=== PATIENT | female | born 1975 | race American Indian/Alaskan Native ===

== ENCOUNTER 2016-06-19 04:13 | Emergency (ER) | payer MEDICAID ==
[2016-06-19] MEDS: DILAUDID IM ONE (06:56)
[2016-06-19] MEDS: ZOFRAN ODT PO ONE (06:57)
[2016-06-19] MEDS: TORADOL IM ONE (06:57)
--- NOTE | 2016-06-19 07:06 | Emergency Department Report ---
HPI - General Chief Complaint: Dental/Oral Time Seen by Provider: 06/19/16 06:03 - HPI HPI: This is a 40-year-old female presents emergency Department with her mother with complaint of left jaw pain that started this morning that they believed to be trigeminal neuralgia. The patient has a history of this and has required multiple ED visits in the past or treatment. The patient started having this when she was a year or so ago. At that time she was started on a medication that they say is "epitol" and mom says that she usually requires a shot of Dilaudid and Zofran to make the pain go away. Patient also tried some Motrin earlier this morning. Patient is a poor historian herself right now as she is moaning due to discomfort. ED Past Medical Hx - Past Medical History Previous Medical History?: Yes Hx Hypertension: No Hx CVA: No Hx Heart Attack/AMI: No Hx Congestive Heart Failure: No Hx Diabetes: No Hx Deep Vein Thrombosis: No Hx Pulmonary Embolism: No Hx GERD: No Hx Liver Disease: No Hx Renal Disease: No Hx Sickle Cell Disease: No Hx Arthritis: No Hx Headaches / Migraines: No Hx Seizures: No Hx Kidney Stones: No Hx Psychiatric Treatment: No Hx Asthma: No (childhood) Hx COPD: No Hx Tuberculosis: No Hx Dementia: No Hx HIV: No Additional medical history: MS, trigeminal neuralgia - Surgical History Hx Coronary Stent: No Hx Open Heart Surgery: No Hx Pacemaker: No Hx Internal Defibrillator: No Hx Cholecystectomy: No Hx Appendectomy: No Hx Breast Surgery: No Additional Surgical History: oscopy - Social History Smoking Status: Never Smoker - Medications Home Medications: Home Medications Medication Instructions Recorded Confirmed Last Taken Type oxyCODONE /ACETAMINOPHEN [Percocet 1 tab PO Q6HR PRN #12 tablet 06/19/16 Unknown Rx 5/325] ED Review of Systems ROS: Stated complaint: FACIAL PAIN Other details as noted in HPI Comment: All other systems reviewed and negative Constitutional: denies: chills, fever Eyes: denies: eye pain, eye discharge, vision change ENT: other (left-sided facial pain). denies: ear pain, throat pain Respiratory: denies: cough, shortness of breath, wheezing Cardiovascular: denies: chest pain, palpitations Gastrointestinal: denies: abdominal pain, nausea, diarrhea Genitourinary: denies: urgency, dysuria, discharge Musculoskeletal: denies: back pain, joint swelling, arthralgia Skin: denies: rash, lesions Neurological: denies: headache, weakness, paresthesias Physical Exam - Physical Exam Vital Signs: Vital Signs 06/19/16 04:24 Temperature 98.7 F Pulse Rate 76 Blood Pressure 128/76 O2 Sat by Pulse 100 Oximetry Physical Exam: GENERAL: The patient is well-developed well-nourished. HEENT: Normocephalic. Atraumatic. Extraocular motions are intact. Patient has moist mucous membranes. Pupils equal reactive to light bilaterally. Oropharynx is clear. There is no facial swelling or asymmetry. Tongue is midline. NECK: Supple. Trachea is midline. CHEST/LUNGS: Clear to auscultation. There is no respiratory distress noted. HEART/CARDIOVASCULAR: Regular. There is no tachycardia. There is no gallop rub or murmur. ABDOMEN: Abdomen is soft, nontender. Patient has normal bowel sounds. There is no abdominal distention. SKIN: There is no rash. There is no edema. There is no diaphoresis. NEURO: The patient is awake, alert, and oriented. The patient is cooperative. The patient has no focal neurologic deficits. The patient has normal speech. MUSCULOSKELETAL: There is no tenderness or deformity. There is no limitation range of motion. There is no evidence of acute injury. ED Course Vital Signs 06/19/16 04:24 Temperature 98.7 F Pulse Rate 76 Blood Pressure 128/76 O2 Sat by Pulse 100 Oximetry ED Medical Decision Making - Medical Decision Making 40-year-old female presents with what appears to be a exacerbation of her previously diagnosed trigeminal neuralgia. Unable to examine the patient at first due to her level of discomfort as she is rolling around and moaning. However after a shot of Toradol, pain medication and some Zofran, I was able to speak with the patient regarding her present illness and do a examination. Patient did not have any drooling or trismus, there was no facial asymmetry or swelling and the patient was able to converse in a normal manner. Patient's vital signs are stable throughout her ED course. She was reevaluated a few times over the 2-3 hours that she was in the emergency department and has remained stable during that time. She is in between primary care physicians and has been looking for a new neurologist. She was given referrals for both a PCP and neurology. She was given a prescription for some pain medication to help her get over this exacerbation. She'll return to the ER with any worsening of her symptoms or any acute distress. - Differential Diagnosis trigeminal neuralgia, dental abscess, TMJ Critical Care Time: No Critical care attestation.: If time is entered above; I have spent that time in minutes in the direct care of this critically ill patient, excluding procedure time. ED Disposition Clinical Impression: Trigeminal neuralgia of left side of face Disposition: DISCHARGED TO HOME OR SELFCARE Is pt being admited?: No Does the pt Need Aspirin: No Condition: Stable Instructions: Trigeminal Neuralgia (ED) Additional Instructions: Please follow-up with a primary care doctor in the next few days. I have also given you a referral for a local neurologist, Dr. Silver, to follow-up regarding your trigeminal neuralgia. Return to the emergency department with any worsening of your symptoms or any acute distress. You've been prescribed a medication that is sedating. Therefore this medication cannot be mixed with alcohol, or taken prior to driving, working, or being responsible for children. Prescriptions: oxyCODONE /ACETAMINOPHEN [Percocet 5/325] 1 tab PO Q6HR PRN #12 tablet PRN Reason: Pain Referrals: PRIMARY CAREMD [Primary Care Provider] - 3-5 Days JAMISON QUISPE MD [Staff Physician] - 3-5 Days DAVI SILVER MD [Staff Physician] - 3-5 Days [facility] [Outside] - 3-5 Days Time of Disposition: 08:03
[2016-06-19 08:10] VITALS: BP 139/81
== END 2016-06-19 08:10 | disposition home or self-care (01) ==
LOC: ED 04:13
DX: G50.0 Trigeminal neuralgia (principal)
CPT/HCPCS: 96372; 99283; J1170; J1885; Q0162

== ENCOUNTER 2016-09-30 10:37 | Inpatient (IN) | payer MEDICAID ==
[2016-09-30] MEDS ORDERED: NACL 0.9% 1000 ML 1,000 ML IV ONE (11:20)
[2016-09-30] MEDS ORDERED: NACL 0.9% 1000 ML 2,000 ML IV ONE (11:22)
--- NOTE | 2016-09-30 11:26 | Emergency Department Report ---
ED General Adult HPI - General Chief complaint: Anxiety Stated complaint: SCOOBY Time Seen by Provider: 09/30/16 10:59 Source: patient, family, EMS, RN notes reviewed Mode of arrival: Stretcher Limitations: No Limitations - History of Present Illness Initial comments: This is a 40-year-old female. She is previously unknown to me. She does not have a local primary care doctor. Past medical history includes possible anxiety (1 attack 5 years ago, no formal psychiatric diagnosis rendered by a psychiatrist), possible not multiple sclerosis, possible trigeminal neuralgia. The patient is brought to the hospital by EMS. As per EMS documentation, the patient indicated she wanted to come to hospital. Patient complains of feeling short of breeath in the ambulance. To me, the patient complains of shortness of breath. It started overnight. It is constant. She also complains of having total body pain, and indicates that her teeth hurt. She is not homicidal. She is not suicidal. She occasionally feels depressed. There is no bright red blood per rectum. There is no hematemesis. She thinks that she is not . There is no leg pain. There is no leg swelling. No recent trips greater than 4 hours. No recent hospital admissions. Patient indicates that she takes control. Initially while in the ER, the patient was very anxious, she cannot recall the month, nor can she recall the day the week. As per her mother, Mrs. Mariella Antoine; [phone], this is unusual. After. At time, this resolved. The patient also began to complain of chest pain. The chest pain is central. It does not radiate to the back, arms or neck. Patient has difficulty describing exacerbating or relieving factors. She has difficulty describing the qualitative nature of her pain. -: Gradual Location: chest, left, right, upper extremity, lower extremity Quality: other (per hpi) Improves with: other (per hpi) Worsens with: other (per hpi) Associated Symptoms: chest pain, loss of appetite, malaise, shortness of breath , weakness - Related Data Previous Rx's Medication Instructions Recorded Last Taken Type oxyCODONE /ACETAMINOPHEN [Percocet 1 tab PO Q6HR PRN #12 tablet 06/19/16 Unknown Rx ] Allergies Allergy/AdvReac Type Severity Reaction Status Date / Time No Known Allergies Allergy Verified 01/15/14 23:36 ED Review of Systems ROS: Stated complaint: SCOOBY Other details as noted in HPI Constitutional: malaise, weakness Eyes: denies: vision change ENT: denies: epistaxis Respiratory: shortness of breath Cardiovascular: chest pain Gastrointestinal: nausea Genitourinary: as per HPI Musculoskeletal: arthralgia, myalgia Neurological: weakness Psychiatric: anxiety. denies: homicidal thoughts, suicidal thoughts ED Past Medical Hx - Past Medical History Hx Hypertension: No Hx CVA: No Hx Heart Attack/AMI: No Hx Congestive Heart Failure: No Hx Diabetes: No Hx Deep Vein Thrombosis: No Hx Pulmonary Embolism: No Hx GERD: No Hx Liver Disease: No Hx Renal Disease: No Hx Sickle Cell Disease: No Hx Arthritis: No Hx Headaches / Migraines: No Hx Seizures: No Hx Kidney Stones: No Hx Psychiatric Treatment: Yes (anxiety) Hx Asthma: No (childhood) Hx COPD: No Hx Tuberculosis: No Hx Dementia: No Hx HIV: No Additional medical history: MS - Surgical History Hx Coronary Stent: No Hx Open Heart Surgery: No Hx Pacemaker: No Hx Internal Defibrillator: No Hx Cholecystectomy: No Hx Appendectomy: No Hx Breast Surgery: No Additional Surgical History: oscopy - Social History Smoking Status: Current Every Day Smoker Substance Use Type: None - Medications Home Medications: Home Medications Medication Instructions Recorded Confirmed Last Taken Type oxyCODONE /ACETAMINOPHEN [Percocet 1 tab PO Q6HR PRN #12 tablet 06/19/16 Unknown Rx 5/325] ED Physical Exam - General Limitations: No Limitations, Other (very anxious, poor historian) General appearance: anxious, in distress - Head Head exam: Present: atraumatic, normocephalic - Eye Eye exam: Present: normal appearance, PERRL, EOMI. Absent: nystagmus - ENT ENT exam: Present: normal exam, normal orophraynx, mucous membranes moist, normal external ear exam - Neck Neck exam: Present: normal inspection, full ROM. Absent: tenderness, meningismus - Respiratory Respiratory exam: Present: normal lung sounds bilaterally. Absent: respiratory distress, wheezes, rales, rhonchi, stridor, chest wall tenderness, accessory muscle use, decreased breath sounds, prolonged expiratory - Cardiovascular Cardiovascular Exam: Present: normal rhythm, tachycardia, normal heart sounds. Absent: systolic murmur, diastolic murmur, rubs, gallop - GI/Abdominal GI/Abdominal exam: Present: soft, normal bowel sounds. Absent: distended, tenderness, guarding, rebound, rigid, pulsatile mass - Extremities Exam Extremities exam: Present: normal inspection, full ROM, normal capillary refill. Absent: pedal edema, joint swelling, calf tenderness - Back Exam Back exam: Present: normal inspection, full ROM. Absent: tenderness, CVA tenderness (R), CVA tenderness (L), muscle spasm, paraspinal tenderness, vertebral tenderness - Neurological Exam Neurological exam: Present: alert, oriented X3, other (Extraocular movements intact. Tongue midline. No facial droop. Facial sensation intact to light touch in the V1, V2, V3 distribution bilaterally. 5 and 5 strength in 4 extremities.. Sensation is intact to light touch in 4 extremities.). Absent: motor sensory deficit - Psychiatric Psychiatric exam: Present: anxious. Absent: homicidal ideation, suicidal ideation - Skin Skin exam: Present: warm, dry, intact, normal color. Absent: rash ED Course Vital Signs 09/30/16 09/30/16 09/30/16 10:44 10:49 11:00 Temperature 97.7 F Pulse Rate 116 H 102 H 113 H Respiratory 37 H 26 H 30 H Rate Blood Pressure 142/81 142/81 O2 Sat by Pulse 100 100 Oximetry 09/30/16 09/30/16 09/30/16 11:30 11:42 12:00 Temperature 97.8 F Pulse Rate 102 H 102 H Respiratory 21 22 Rate Blood Pressure 139/87 149/96 O2 Sat by Pulse 100 100 Oximetry - Reevaluation(s) Reevaluation #1: 09/30/16 11:56 differential diagnosis: Pneumothorax, hemothorax, pneumonia, pericardial effusion, pericarditis, pleuritis, myocarditis, acute coronary syndrome, pulmonary embolus, anxiety, electrolyte derangement, toxic affective drugs Assessment and plan: 40-year-old female with shortness of breath, chest pain. She appears to be markedly anxious. Initially alert to name and location, she initially could not recall the day the week or month. However, this resolved shortly on its own, as she is somewhat more calm now. The patient does not require 1013 at this time. She is clinically sober at this time. We will check basic laboratory studies, chest x-ray, CT scan of the brain, serum and urine toxicology studies. We will reassess once her laboratory studies have resulted. On reexamination, the patient denies diaphoresis, indicates that the chest pain does not radiate to the back, arms or neck. As per the patient and mother, there is no family history of heart disease, no family history of ACS that they are aware of, patient is low risk by JUSTIN score, and low risk by heart score. Reevaluation #2: 09/30/16 12:51 laboratory studies indicate hypokalemia, metabolic acidosis, with serum bicarbonate of 12. Patient indicates she is not eating or drinking because her teeth hurt her. On her examination, there is no obvious oral abscess or significant dental abnormality. A noncontrast CT scan of the brain is negative. X-ray of the chest was negative. IV fluids ordered. Potassium supplementation is ordered. Case is presented to the Hospital physician, Dr. Becerril, who accepts the patient for admission for metabolic acidosis, most likely secondary to inadequate oral intake. ED Medical Decision Making - Lab Data Result diagrams: 09/30/16 11:36 09/30/16 11:36 Vital Signs 09/30/16 09/30/16 10:49 11:42 Temperature 97.7 F 97.8 F Pulse Rate 102 H Respiratory 26 H Rate Blood Pressure 142/81 O2 Sat by Pulse 100 Oximetry Lab Results 09/30/16 09/30/16 Range/Units 11:36 11:42 WBC 12.4 H (4.5-11.0) K/mm3 RBC 4.74 (3.65-5.03) M/mm3 Hgb 12.9 (10.1-14.3) gm/dl Hct 40.3 (30.3-42.9) % MCV 85 (79-97) fl MCH 27 L (28-32) pg MCHC 32 (30-34) % RDW 16.1 H (13.2-15.2) % Plt Count 199 (140-440) K/mm3 Lymph % (Auto) 9.0 L (13.4-35.0) % Wirt % (Auto) 5.0 (0.0-7.3) % Eos % (Auto) 0.3 (0.0-4.3) % Baso % (Auto) 0.6 (0.0-1.8) % Lymph # 1.1 L (1.2-5.4) K/mm3 Wirt # 0.6 (0.0-0.8) K/mm3 Eos # 0.0 (0.0-0.4) K/mm3 Baso # 0.1 (0.0-0.1) K/mm3 Seg Neutrophils % 85.1 H (40.0-70.0) % Seg Neutrophils # 10.6 H (1.8-7.7) K/mm3 Urine Color Yellow (Yellow) Urine Turbidity Clear (Clear) Urine pH 6.0 (5.0-7.0) Ur Specific [place] 1.024 (1.003-1.030) Urine Protein 100 mg/dl (Negative) mg/dL Urine Glucose (UA) Neg (Negative) mg/dL Urine Ketones 80 (Negative) mg/dL Urine Blood Neg (Negative) Urine Nitrite Neg (Negative) Urine Bilirubin Neg (Negative) Urine Urobilinogen < 2.0 (<2.0) mg/dL Ur Leukocyte Esterase Neg (Negative) Urine WBC (Auto) < 1.0 (0.0-6.0) /HPF Urine RBC (Auto) < 1.0 (0.0-6.0) /HPF U Epithel Cells (Auto) 1.0 (0-13.0) /HPF Urine Mucus Few /HPF - EKG Data When compared to previous EKG there are: no significant change 09/30/16 11:58 sinus tachycardia, 112 bpm, normal axis, QTC 458 seconds, motion artifact, not consistent with STEMI, appears unchanged compared to prior EKG from 01/18/2016 - Radiology Data Radiology results: pending, report reviewed, image reviewed ct head negative xr chest negative Critical care attestation.: If time is entered above; I have spent that time in minutes in the direct care of this critically ill patient, excluding procedure time. ED Disposition Clinical Impression: Metabolic acidosis, Hypokalemia, Dyspnea Disposition: OP ADMITTED IP TO THIS HOSP Is pt being admited?: Yes Does the pt Need Aspirin: Yes Condition: Fair
[2016-09-30 11:47] LABS: Urine Drugs of Abuse Note Disclamer
[2016-09-30 11:53] LABS: Basophils % (Auto) 0.6 % (0.0-1.8); Eosinophils % (Auto) 0.3 % (0.0-4.3); Hematocrit 40.3 % (30.3-42.9); Hemoglobin 12.9 gm/dl (10.1-14.3); Mean Corpuscular HGB Conc 32 % (30-34); Mean Corpuscular Hemoglobin 27 pg (28-32); Mean Corpuscular Volume 85 fl (79-97); Platelet Count 199 K/mm3 (140-440); Red Blood Count 4.74 M/mm3 (3.65-5.03); Red Cell Distribution Width 16.1 % (13.2-15.2); White Blood Count 12.4 K/mm3 (4.5-11.0)
[2016-09-30 11:57] LABS: Bilirubin,Urine NEG (Negative); Blood,Urine NEG (Negative); Ketones,Urine 80 mg/dL (Negative); Leukocyte Esterase,Urine NEG (Negative); Mucus,Urine FEW /HPF; Nitrite,Urine NEG (Negative); RBC,Urine < 1.0 /HPF (0.0-6.0); Urobilinogen,Urine < 2.0 mg/dL (<2.0); WBC,Urine < 1.0 /HPF (0.0-6.0)
[2016-09-30 12:03] LABS: INR 0.95 (0.87-1.13)
[2016-09-30 12:16] LABS: Alanine Aminotransferase 19 units/L (7-56); Albumin 4.3 g/dL (3.9-5); Albumin/Globulin Ratio 1.2 %; Alkaline Phosphatase 97 units/L (35-129); Anion Gap 30 mmol/L; BUN/Creatinine Ratio 11.25; Blood Urea Nitrogen 9 mg/dL (7-17); Calcium 9.3 mg/dL (8.4-10.2); Carbon Dioxide 12 mmol/L (22-30); Chloride 99.8 mmol/L (98-107); Creatine Kinase 128 units/L (30-135); Glucose 104 mg/dL (65-100); Potassium 3.1 mmol/L (3.6-5.0); Sodium 139 mmol/L (137-145); Total Protein 7.9 g/dL (6.3-8.2)
--- NOTE | 2016-09-30 12:39 | Cat Scan Report ---
CT HEAD WITHOUT CONTRAST: 09/30/16 10:37:00 CLINICAL: Altered mental status. TECHNIQUE: 2.5-mm noncontrast scans. COMPARISON:None FINDINGS: The ventricles are normal size. Mildly enlarged bilateral frontal and temporal lobe sulci. No abnormal hypodensity. No mass or mass effect. No hemorrhage, edema or extra-axial collection. The sinuses are clear. Normal orbits and soft tissues. The calvarium and skull base are intact. IMPRESSION: Mild cortical atrophy. No acute change.
[2016-09-30] MEDS ORDERED: K-DUR PO ONE (12:46)
[2016-09-30] MEDS ORDERED: BABY ASPIRIN PO ONE (12:53)
--- NOTE | 2016-09-30 13:12 | XRay Report ---
AP CHEST : 09/30/16 10:37:00 CLINICAL: Altered mental status. COMPARISON:01/18/16 FINDINGS: Normal heart and pulmonary vessels. The lungs are normally expanded and clear. The bones and soft tissues are unremarkable. IMPRESSION: Normal chest.
[2016-09-30] MEDS ORDERED: ATIVAN ONE (14:29)
[2016-09-30] MEDS ORDERED: ATIVAN IV ONE (14:39)
[2016-09-30] MEDS ORDERED: PERCOCET 5/325 PO PRN (16:46)
[2016-09-30] MEDS ORDERED: DULCOLAX PR PRN (16:47)
[2016-09-30] MEDS ORDERED: DILAUDID IV PRN (16:47)
[2016-09-30] MEDS ORDERED: ZOFRAN IV PRN (16:47)
[2016-09-30] MEDS ORDERED: TYLENOL PO PRN (16:47)
[2016-09-30] MEDS ORDERED: MILK OF MAGNESIA PO PRN (16:47)
[2016-09-30] MEDS ORDERED: ATIVAN IV PRN (16:48)
[2016-09-30] MEDS: KCL 10MEQ/100ML 10 MEQ/100 ML BAG IV SCH ×3 (17:20→22:34)
[2016-09-30] MEDS: D5NS 1,000 ML IV SCH (17:58)
--- NOTE | 2016-09-30 19:34 | Admit Criteria Form ---
Admission Criteria Documentation: MENTAL STATUS CHANGE Clinical Indications for Inpatient Care (Place 'X' for any and all applicable criteria): Ongoing inpatient care may be needed for 1 or more of the following(1)(2)(3)(5)( 6): [X ]I. Suspected serious etiology (eg, medical disorder, CONNECTION WORKER event) of altered mental status [ ]II. Danger to self or others not manageable at lower level of care [ ]III. Grave disability (eg, inability to perform self care necessary at lower level of care) [ ]IV. Agitation or inappropriate behavior interfering with care for primary condition (eg, attempting to discontinue lines or drains prematurely, unable to cooperate with respiratory care) [ ]V. Delirium [A] [D][E] as described by 1 or more of the following(26): [ ]a) Delirium due to alcohol or sedative [F] withdrawal [ ]b) Delirium of uncertain etiology that has not responded to appropriate empiric treatment [ ]c) Delirium that prevents performance of a life-sustaining function (eg, feeding or hydrating oneself) [ ]. General contraindications and/or Inappropriate clinical situations for Observational Care in patients with Mental Status Change, when ANY ONE of the following is required: [ ]a) Prediction of prolongation of LOS based on ANY ONE of the following may be considered as a contraindication for observational care 2, 3, 4, 5, 6, 7, 8, 9, 10, 11 [ ]i) Age > 65 yrs. [ ]ii) Patient arriving by ambulance [ ]iii) Patient with high acuity [ ]iv) Patient requiring vital sign monitoring [ ]v) Patient on IV medication [ ]b) Systolic blood pressures greater than or equal to 180mmHg 3, 12 [ ]c) Patient with altered mental status including delirium and other alteration of consciousness, (3) [ ]d) Patient whose discharge disposition will be to a residential home or rehabilitation home should not be managed in Emergency Department Observation Unit. CMS rule requires 3 days hospital stay before such placement.3,13 [ ]e) Patient with failure to thrive due to broad array of etiologies 3,16,17 [ ]f) Inability to ambulate 3,14 Extended stay beyond goal length of stay for the primary condition may be needed until ALL of the following are present(3)(5): [ ]a) Underlying medical etiology of mental status change is absent, or has been established and adequately treated [ ]b) Danger to self or others is absent or manageable at lower level of care. [ ]c) Behavior crisis management, including physical or chemical restraints, is not required or available at lower level of car [ ]d) Substance or alcohol withdrawal is absent or manageable at lower level of care. [ ]e) Behavioral symptoms (eg, agitation, somnolence, inappropriate behavior) are absent, or are manageable at lower level of care. The original [facility] [employer] content created by [facility] [employer] has been revised. The portions of the content which have been revised are identified through the use of italic text or in bold, and [facility] has neither reviewed nor approved the modified material. All other unmodified content is copyright [facility] [employer]. Please see references footnoted in the original [facility] edition 2016 Admission Criteria Met: Yes
[2016-09-30] MEDS ORDERED: LOVENOX SUB-Q SCH (22:00)
[2016-09-30] MEDS: PEPCID IV SCH (22:35)
[2016-10-01] MEDS: KCL 10MEQ/100ML 10 MEQ/100 ML BAG IV SCH (00:56)
[2016-10-01] MEDS: D5NS 1,000 ML IV SCH (06:25)
[2016-10-01 07:32] LABS: Alanine Aminotransferase 16 units/L (7-56); Albumin 3.5 g/dL (3.9-5); Albumin/Globulin Ratio 1.3 %; Alkaline Phosphatase 74 units/L (35-129); Anion Gap 18 mmol/L; BUN/Creatinine Ratio 6.66; Blood Urea Nitrogen 6 mg/dL (7-17); Calcium 8.3 mg/dL (8.4-10.2); Carbon Dioxide 17 mmol/L (22-30); Chloride 109.8 mmol/L (98-107); Glucose 106 mg/dL (65-100); Sodium 141 mmol/L (137-145); Total Protein 6.1 g/dL (6.3-8.2)
[2016-10-01 07:34] LABS: Basophils % (Auto) 0.8 % (0.0-1.8); Eosinophils % (Auto) 3.7 % (0.0-4.3); Hematocrit 34.2 % (30.3-42.9); Mean Corpuscular HGB Conc 32 % (30-34); Mean Corpuscular Hemoglobin 28 pg (28-32); Mean Corpuscular Volume 86 fl (79-97); Platelet Count 152 K/mm3 (140-440); Red Blood Count 3.96 M/mm3 (3.65-5.03); Red Cell Distribution Width 16.5 % (13.2-15.2); White Blood Count 5.9 K/mm3 (4.5-11.0)
--- NOTE | 2016-10-01 07:57 | Event Note ---
Date: 09/30/16 See H/p in reports Severe Anxiety-Mental breonna consult requested Chest pain-r/o OR.CP sec to anxiety Lexiscan on 10/02/16 Hypokalemia
[2016-10-01 07:58] LABS: Potassium 3.9 mmol/L (3.6-5.0)
[2016-10-01] MEDS ORDERED: SODIUM CHLORIDE FLUSH SYRINGE 10 ML IV PRN (08:09)
--- NOTE | 2016-10-01 09:28 | History and Physical Report ---
CHIEF COMPLAINT: Severe anxiety and shortness of breath. HISTORY OF PRESENT ILLNESS: A 40-year-old female who comes in for severe shortness of breath. This started overnight. She also complains of total body pain and retrosternal chest pain. She is not homicidal or suicidal. The patient appears depressed. Very anxious. No hematemesis. Crying. No stressors as per the patient. The patient is basically unemployed and at home. She complains of some chest pain associated with difficulty breathing. No recent travel. PAST MEDICAL HISTORY: Significant for anxiety disorder in the past but otherwise no significant past medical history. PAST SURGICAL HISTORY: None. SOCIAL HISTORY: Current smoker. FAMILY HISTORY: No hypertension, no diabetes. HOME MEDICATIONS: Percocet 5/325 q.6 h. p.r.n. #12, only prescribed recently, which was in June. REVIEW OF SYSTEMS: CONSTITUTIONAL: No weight loss, no weight gain, very anxious, poor historian. HEENT: No sore throat, no postnasal drip. NECK: No neck pain. CHEST: Short of breath but no wheezing. CARDIOVASCULAR: Slight chest pain secondary to severe anxiety. GASTROINTESTINAL: No nausea, no vomiting, no diarrhea. GENITOURINARY: No dysuria, no flank pain. MUSCULOSKELETAL: No joint pains. No muscle pains. CENTRAL NERVOUS SYSTEM: No syncope, no seizures. A 14-point review of systems was done. PHYSICAL EXAMINATION: GENERAL: Middle-aged female crying, short of breath, looks very anxious. VITAL SIGNS: Temperature 97.7, pulse is 116, respiratory rate is 37, fluctuating from 37 to 26. Sats are 100%. HEENT: Unremarkable. Pupils equal and reactive. NECK: Supple, no lymphadenopathy, no thyromegaly. LUNGS: Clear to auscultation and percussion. Good air entry. CARDIOVASCULAR: S1, S2 heard. No gallop, no murmur, no rub. Apical impulse in left fifth intercostal space and midclavicular line. ABDOMEN: Soft and benign. No hepatosplenomegaly. No guarding, no rigidity. Hernial orifices are normal. EXTREMITIES: Good pedal pulses. DIAGNOSTIC DATA: EKG shows sinus tachycardia, heart rate of 110 per minute. LABORATORY DATA: Significant for white count of 12,400, H and H of 12.9 and 40.3, platelet count 199,000. Potassium is 3.1, BUN and creatinine is 9 and 0.8. Urine is negative. Drug screen was positive for amphetamines, cocaine and barbiturates. ASSESSMENT AND PLAN: 1. Severe anxiety. Mental health consult requested. The patient started on IV Ativan 1 mg q.3 h. p.r.n. 2. Polysubstance abuse and dependence. CIWA protocol was initiated. 3. Hypokalemia, supplemented. 4. Metabolic acidosis. Her bicarbonate is 12 and could not be attributed to any sepsis, hyperglycemia, etc. Possibly secondary to hypoventilation. IV fluids and Ativan for the time being. Should resolve with subsiding hypoventilation. 5. Deep venous thrombosis prophylaxis. Lovenox 40 mg subcutaneous daily. 6. Chest pain, mild. We will get Lexiscan in the morning. JOB# [id number] SIRIA/TRINA
[2016-10-01 09:57] LABS: Creatine Kinase MB 1.3 ng/mL (0.0-4.0)
[2016-10-01 09:58] LABS: Creatine Kinase 129 units/L (30-135)
[2016-10-01] MEDS ORDERED: LEXISCAN IV ONE (10:26)
[2016-10-01 12:40] VITALS: BP 131/89
[2016-10-01] MEDS: PEPCID IV SCH (13:51)
--- NOTE | 2016-10-01 13:53 | Discharge Summary ---
Providers - Providers Date of Admission: 09/30/16 12:54 Date of discharge: 10/01/16 Attending physician: DANITZA BROWN 10/01/16 Consult to Cardiac Rehabilitation [CONS] Routine Reason For Exam: Phase I 10/01/16 08:28 Consult to Mental Health [CONS] Routine Reason For Exam: severe anxiety/poly substance abuse Place consult to:: yes Notified:: clementine Phone number called:: [phone] Was contact made?: Yes If yes, spoke with:: clementine Time called:: 09:29 Primary care physician: SH[facility] Hospitalization Reason for admission: chest pain and shortness of breath. Condition: Fair Pertinent studies: Chest x-ray; normal study Stress test; negative for reversible ischemia, normal left ventricle function and ejection fraction CT head without contrast; mild cortical atrophy no acute changes Urine drug screen; positive for barbiturates, amphetamines, cocaine Hospital course: Final diagnosis; Atypical chest pain Negative stress test Noncardiac pain secondary to costochondritis Gastroesophageal reflux disease Obesity Recreational drug use ;cocaine and amphetamine Tobacco use Brief history and hospital course; Very pleasant 40-year-old female patient with significant past medical history of anxiety disorder, was admitted through emergency room with left-sided chest pain anxiety and shortness of breath Patient was initially evaluated and admitted to hospital symptomatically managed subsequently underwent cardiac stress test which was negative for reversible ischemia and preserved left ventricle function Patient was symptomatically managed Counseling done advised smoking cessation and advised nicotine patch patient also counseled to quit recreational drug use with methamphetamine and cocaine Patient verbalized understanding Today she is comfortable in bed alert awake oriented 3 not in acute distress vital signs stable [id number] evaluation and physical examination done by me prior to discharge is unremarkable as detailed below Patient is hemodynamically clinically stable for discharge and does not need any further acute inpatient care this point Disposition: DISCHARGED TO HOME OR SELFCARE Time spent for discharge: 31 min Core Measure Documentation - Palliative Care Palliative Care/ Comfort Measures: Not Applicable - Core Measures Any of the following diagnoses?: none Exam - Constitutional Vitals: Temp Pulse Resp BP Pulse Ox 98.5 F 81 18 131/89 98 10/01/16 08:16 10/01/16 11:33 10/01/16 08:16 10/01/16 11:33 10/01/16 08:16 General appearance: Present: no acute distress, well-nourished - EENT Eyes: Present: PERRL, EOM intact - Neck Neck: Present: supple, normal ROM - Respiratory Respiratory effort: normal Respiratory: negative: rales, rhonchi, wheezing - Cardiovascular Rhythm: regular Heart Sounds: Present: S1 & S2 - Extremities Extremities: no ischemia, pulses intact, pulses symmetrical Peripheral Pulses: within normal limits - Abdominal General gastrointestinal: Present: soft, non-tender, non-distended, normal bowel sounds - Integumentary Integumentary: Present: clear, warm - Musculoskeletal Musculoskeletal: strength equal bilaterally - Psychiatric Psychiatric: appropriate mood/affect, cooperative - Neurologic Neurologic: CNII-XII intact, moves all extremities Plan Activity: no restrictions Diet: regular Special Instructions: smoking cessation, other (advised to quit recreational drug use cocaine) Follow up with: PRIMARY CARE,MD [Primary Care Provider] - 3-5 Days Prescriptions: Famotidine [Pepcid] 20 mg PO BID #20 tablet oxyCODONE /ACETAMINOPHEN [Percocet 5/325 mg] 1 tab PO Q12H PRN #10 tablet PRN Reason: Pain
[2016-10-01 14:34] LABS: Creatine Kinase MB 1.2 ng/mL (0.0-4.0)
[2016-10-01 14:39] LABS: Creatine Kinase 137 units/L (30-135)
--- NOTE | 2016-10-02 05:07 | Treadmill Report ---
LEFT VENTRICLE: Left ventricular chamber size is within normal limits. Perfusion study is suboptimal, with evidence of extensive GI uptake. Otherwise, fairly homogeneous uptake of the tracer in all segments, no significant defects identified. Gated analysis demonstrates normal left ventricular systolic function, ejection fraction 58%. CONCLUSION: Suboptimal perfusion study, no demonstrable ischemic coronary disease. [facility]# [id number] CA/NTS
== END 2016-10-01 15:34 | disposition home or self-care (01) | DRG 206 ==
LOC: ED 10:37 → 3A 12:54
PROVIDERS: ADMIT Internal Medicine; ATTEND Internal Medicine
DX: M94.0 Chondrocostal junction syndrome [Tietze] (principal); E87.2 Acidosis; E87.6 Hypokalemia; F41.9 Anxiety disorder, unspecified; F17.200 Nicotine dependence, unspecified, uncomplicated; F19.20 Other psychoactive substance dependence, uncomplicated; K21.9 Gastro-esophageal reflux disease without esophagitis; E66.9 Obesity, unspecified; F14.20 Cocaine dependence, uncomplicated; Z68.33 Body mass index [BMI] 33.0-33.9, adult
CPT/HCPCS: 36415; 70450; 71010; 78452; 80053; 80307; 80320; 81001; 82140; 82550; 82553; 83735; 84443; 84484; 84702; 85025; 85379; 85610; 93005; 93010; 93017; 96360; 99406; A9502; G0480; J1650; J2060; J2785; J3480; J7030; J7042

== ENCOUNTER 2017-06-08 15:24 | Emergency (ER) | payer MEDICAID ==
[2017-06-08 22:22] VITALS: BP 134/72
--- NOTE | 2017-06-08 23:18 | Emergency Department Report ---
Minor Respiratory - HPI Chief Complaint: Upper Respiratory Infection Stated Complaint: FLU LIKE SYMPTOMS Time Seen by Provider: 06/08/17 23:16 Duration: 4 Days Severity: moderate Minor Respiratory: Yes Sore Throat, Yes Able to Tolerate Fluids, Yes Cough, Yes Sick Contacts (her children), No Rhinorrhea, No Ear Pain, No Hemoptysis, No Chest Pain, No Shortness of Breath, No Fever Other History: 41-year-old female presents to ED with her 3 children all complaining of cough, runny nose and body aches for the past one week. She reports cough as intermittent throughout the day, nonproductive. Patient also admits chest pain with coughing. She denies shortness of breath, dizziness, headache. Patient states she is able to tolerate fluids and food okay ED Review of Systems ROS: Stated complaint: FLU LIKE SYMPTOMS Other details as noted in HPI Constitutional: denies: chills, fever Eyes: denies: eye pain, eye discharge, vision change ENT: denies: ear pain, throat pain Respiratory: cough. denies: shortness of breath, wheezing Cardiovascular: denies: chest pain, palpitations Endocrine: no symptoms reported Gastrointestinal: denies: abdominal pain, nausea, diarrhea Genitourinary: denies: urgency, dysuria, discharge Musculoskeletal: denies: back pain, joint swelling, arthralgia Skin: denies: rash, lesions Neurological: denies: headache, weakness, paresthesias Psychiatric: denies: anxiety, depression Hematological/Lymphatic: denies: easy bleeding, easy bruising ED Past Medical Hx - Past Medical History Previous Medical History?: Yes Hx Hypertension: No Hx CVA: No Hx Heart Attack/AMI: No Hx Congestive Heart Failure: No Hx Diabetes: No Hx Deep Vein Thrombosis: No Hx Pulmonary Embolism: No Hx GERD: No Hx Liver Disease: No Hx Renal Disease: No Hx Sickle Cell Disease: No Hx Arthritis: No Hx Headaches / Migraines: No Hx Seizures: No Hx Kidney Stones: No Hx Psychiatric Treatment: Yes (anxiety) Hx Asthma: No (childhood) Hx COPD: No Hx Tuberculosis: No Hx Dementia: No Hx HIV: No Additional medical history: MS, Trigeminal Nueralgia - Surgical History Hx Coronary Stent: No Hx Open Heart Surgery: No Hx Pacemaker: No Hx Internal Defibrillator: No Hx Cholecystectomy: No Hx Appendectomy: No Hx Breast Surgery: No Additional Surgical History: oscopy - Social History Smoking Status: Current Every Day Smoker - Medications Home Medications: Home Medications Medication Instructions Recorded Confirmed Last Taken Type Famotidine [Pepcid] 20 mg PO BID #20 tablet 10/01/16 Unknown Rx oxyCODONE /ACETAMINOPHEN [Percocet 1 tab PO Q12H PRN #10 tablet 10/01/16 Unknown Rx 5/325 mg] Benzonatate [Tessalon Perles] 100 mg PO Q8HR #24 capsule 06/09/17 Unknown Rx Ibuprofen [Motrin 800 MG tab] 800 mg PO Q8H #40 tablet 06/09/17 Unknown Rx Minor Respiratory Exam - Exam General: Vital signs noted. No distress. Alert and acting appropriately. HEENT: Yes Moist Mucous Membranes, No Pharyngeal Erythema, No Pharyngeal Exudates, No Rhinorrhea, No Conjuctival Injection, No Frontal Tenderness, No Maxillary Tenderness Ear: Neither TM Bulge, Neither TM Erythema, Neither EAC Pain, Neither EAC Discharge Neck: Yes Supple, No Adenopathy Lungs: Yes Good Air Exchange, No Wheezes, No Ronchi, No Stridor, No Cough, No Labored Respirations, No Retractions, No Use of Accessory Muscles, No Other Abnormal Lung Sounds Heart: Yes Regular, No Murmur Abdomen: Yes Normal Bowel Sounds, No Tenderness, No Peritoneal Signs Skin: No Rash, No Edema Neurologic: Alert and oriented, no deficits. Musculoskeletal: Unremarkable. ED Course Vital Signs 06/08/17 22:18 Temperature 98.1 F Pulse Rate 94 H Respiratory 18 Rate Blood Pressure 134/72 O2 Sat by Pulse 98 Oximetry ED Medical Decision Making - Medical Decision Making 41-year-old female presents with viral syndrome. Fever resolved no fever during the ED stay. Discussed with pt symptomatic relief with [id number] medications. Discussed with the patient that her influenza test A and B was negative Discussed continue Tylenol and Motrin as needed for fever and pain. Discussed increase fluids and diet intake. Discussed rest much needed. Discussed daily vitamin C for immune booster. Discussed follow-up with butcher apprentice in 3-5 days. Patient verbally states she understands and will comply the following instructions and follow-up Vital signs stable. Patient is in no acute distress Critical care attestation.: If time is entered above; I have spent that time in minutes in the direct care of this critically ill patient, excluding procedure time. ED Disposition Clinical Impression: Viral syndrome URI (upper respiratory infection) Qualifiers: URI type: unspecified URI Qualified Code(s): J06.9 - Acute upper respiratory infection, unspecified Disposition: TO HOME OR SELFCARE Is pt being admited?: No Does the pt Need Aspirin: No Condition: Stable Instructions: Upper Respiratory Infection (ED), Viral Syndrome (ED) Additional Instructions: Make sure to follow up with the primary care physician as discussed. Take all your medications as you've been prescribed. If you have any worsening symptoms or develop new symptoms please return to ED immediately. Prescriptions: Benzonatate [Tessalon Perles] 100 mg PO Q8HR #24 capsule Ibuprofen [Motrin 800 MG tab] 800 mg PO Q8H #40 tablet Referrals: ALEKSANDR PEÑA MD [Primary Care Provider] - 3-5 Days [facility] [Outside] - 3-5 Days [facility] [Outside] - 3-5 Days [facility] [Outside] - 3-5 Days Forms: Work/School Release Form(ED) Time of Disposition: 00:47
[2017-06-09] MEDS ORDERED: ROBITUSSIN PO ONE (00:37)
[2017-06-09] MEDS ORDERED: MOTRIN PO ONE (00:37)
[2017-06-09] MEDS ORDERED: DELTASONE PO ONE (00:37)
== END 2017-06-09 01:41 | disposition home or self-care (01) ==
LOC: ED 15:24
DX: B34.9 Viral infection, unspecified (principal); J06.9 Acute upper respiratory infection, unspecified; F41.9 Anxiety disorder, unspecified; F17.200 Nicotine dependence, unspecified, uncomplicated
CPT/HCPCS: 87116; 87400; 87430; 99283; J7512

== ENCOUNTER 2017-09-15 16:04 | Emergency (ER) | payer MEDICAID ==
--- NOTE | 2017-09-15 17:01 | Emergency Department Report ---
Blank Doc - Documentation Documentation: 41 -year-old female presents to the ED with chest pain and shortness of breath has a history of trigeminal neuralgia and high blood pressure. She describes her Chest pain as pressure, onset 5 hours prior to evaluation while at rest, Location: mid chest Radiation: none, Severity now (0-10): 10, Severity at worst (0-10): 10 Duration: 5 minutes characterized as: Pressure. She denies any known alleviating or exacerbating factors,Patient denies exertional pain, patient denies pleuritic pain. Patient denies associated symptoms, such as nausea/vomiting, no diaphoresis. She also complained of severe left jaw pain which she attributes to her trigeminal neuralgia. Patient is on Depo-Medrol shot.
[2017-09-15] MEDS ORDERED: XANAX PO ONE (17:02)
[2017-09-15 17:29] LABS: Basophils # (Auto) 0.1 K/mm3 (0.0-0.1); Basophils % (Auto) 1.1 % (0.0-1.8); Eosinophils # (Auto) 0.1 K/mm3 (0.0-0.4); Eosinophils % (Auto) 0.7 % (0.0-4.3); Hematocrit 36.3 % (30.3-42.9); Hemoglobin 11.6 gm/dl (10.1-14.3); Lymphocytes # (Auto) 1.4 K/mm3 (1.2-5.4); Lymphocytes % (Auto) 16.2 % (13.4-35.0); Mean Corpuscular HGB Conc 32 % (30-34); Mean Corpuscular Hemoglobin 25 pg (28-32); Mean Corpuscular Volume 78 fl (79-97); Monocytes # (Auto) 0.9 K/mm3 (0.0-0.8); Monocytes % (Auto) 10.2 % (0.0-7.3); Platelet Count 214 K/mm3 (140-440); Red Blood Count 4.65 M/mm3 (3.65-5.03); Red Cell Distribution Width 17.8 % (13.2-15.2)
--- NOTE | 2017-09-15 17:49 | Emergency Department Report ---
ED Anxiety HPI - General Chief Complaint: Anxiety Stated Complaint: ANXIETY Time Seen by Provider: 09/15/17 16:41 Source: patient Mode of arrival: Ambulatory - History of Present Illness Initial Comments: 41-year-old woman with history of anxiety disorder presents with increased sense of anxiety, as well as increased generalized tingling, particularly of hands and fingers. She has a chronic history of anxiety, but is more concerned because this is her fourth attack of the week, and she is concerned about the secondary symptoms as well. Patient was given Xanax at triage here, and is significantly improved at time of examination by myself. She has multiple additional secondary complaint, but these are all chronic, and generally related to her multiple sclerosis, for which she has had a long-standing diagnosis, but has not had any ongoing specialty care by a neurologist since moving here to [place] from [place] 5 years ago. She also has a history of trigeminal neuralgia, which is usually required hydromorphone treatment, but she has not been having any facial pains along with this. She is relatively asymptomatic otherwise, and has no acute constitutional symptoms, no injuries and no falls. She lives with her mother, is ambulatory, and generally takes care of herself fairly well. She smokes cigarettes, drinks alcohol occasionally , which mother believes may have some effect on her anxiety attacks, and she smokes marijuana occasionally, primarily to control attacks and to decrease discomfort from neuralgia and chronic leg pain. She is also concerned about finding a neurologist, but the closest one that would accept her insurance is more than 3 hours away, which is impractical for patient. MD Complaint: anxiety, heart racing, shortness of breath, other (paresthesias of hands and fingers) -: hour(s) (8-10 hours, awakened with this morning), This morning Symptoms: extremity numbness Place: home Previous History of Same: Yes Severity: severe Quality: constant Provoking factors: none known (possibly emotional stress, does not work) Improves With: rest, other Worsens With: nothing, other (possible day after ingesting alcohol) Associated symptoms: shortness of breath. denies: chest pain, palpitations, diaphoresis, cough, fever/chills - Related Data Home Medications: Previous Rx's Medication Instructions Recorded Last Taken Type Famotidine [Pepcid] 20 mg PO BID #20 tablet 10/01/16 Unknown Rx oxyCODONE /ACETAMINOPHEN [Percocet 1 tab PO Q12H PRN #10 tablet 10/01/16 Unknown Rx 5/325 mg] Benzonatate [Tessalon Perles] 100 mg PO Q8HR #24 capsule 06/09/17 Unknown Rx Ibuprofen [Motrin 800 MG tab] 800 mg PO Q8H #40 tablet 06/09/17 Unknown Rx LORazepam [Ativan] 0.5 mg PO BID PRN #30 tablet 09/15/17 Unknown Rx Allergies/Adverse Reactions: Allergies Allergy/AdvReac Type Severity Reaction Status Date / Time No Known Allergies Allergy Verified 01/15/14 23:36 ED Review of Systems ROS: Stated complaint: ANXIETY Other details as noted in HPI Comment: All other systems reviewed and negative Constitutional: denies: chills, diaphoresis, fever, malaise ENT: denies: ear pain, throat pain Respiratory: shortness of breath. denies: cough, SOB with exertion, SOB at rest , wheezing Cardiovascular: denies: chest pain, palpitations Endocrine: no symptoms reported Gastrointestinal: denies: abdominal pain, nausea, diarrhea Genitourinary: denies: urgency, dysuria, discharge Musculoskeletal: other Skin: denies: rash, lesions Neurological: paresthesias (paresthesias in hands and fingers, chronic leg pain secondary to MS) Psychiatric: anxiety Hematological/Lymphatic: denies: easy bleeding, easy bruising ED Past Medical Hx - Past Medical History Hx Hypertension: No Hx CVA: No Hx Heart Attack/AMI: No Hx Congestive Heart Failure: No Hx Diabetes: No Hx Deep Vein Thrombosis: No Hx Pulmonary Embolism: No Hx GERD: No Hx Liver Disease: No Hx Renal Disease: No Hx Sickle Cell Disease: No Hx Arthritis: No Hx Headaches / Migraines: No Hx Seizures: No Hx Kidney Stones: No Hx Psychiatric Treatment: Yes (anxiety) Hx Asthma: No (childhood) Hx COPD: No Hx Tuberculosis: No Hx Dementia: No Hx HIV: No Additional medical history: MS, Trigeminal Nueralgia - Surgical History Hx Coronary Stent: No Hx Open Heart Surgery: No Hx Pacemaker: No Hx Internal Defibrillator: No Hx Cholecystectomy: No Hx Appendectomy: No Hx Breast Surgery: No Additional Surgical History: oscopy - Social History Smoking Status: Current Every Day Smoker Substance Use Type: None, Alcohol, Marijuana (occasional) - Medications Home Medications: Home Medications Medication Instructions Recorded Confirmed Last Taken Type Famotidine [Pepcid] 20 mg PO BID #20 tablet 10/01/16 Unknown Rx oxyCODONE /ACETAMINOPHEN [Percocet 1 tab PO Q12H PRN #10 tablet 10/01/16 Unknown Rx 5/325 mg] Benzonatate [Tessalon Perles] 100 mg PO Q8HR #24 capsule 06/09/17 Unknown Rx Ibuprofen [Motrin 800 MG tab] 800 mg PO Q8H #40 tablet 06/09/17 Unknown Rx LORazepam [Ativan] 0.5 mg PO BID PRN #30 tablet 09/15/17 Unknown Rx ED Physical Exam - General Limitations: No Limitations General appearance: alert, in no apparent distress (resting comfortably at time of examination) - Head Head exam: Present: atraumatic, normocephalic - Eye Eye exam: Present: PERRL - ENT ENT exam: Present: mucous membranes moist - Neck Neck exam: Present: normal inspection - Respiratory Respiratory exam: Present: normal lung sounds bilaterally. Absent: respiratory distress - GI/Abdominal GI/Abdominal exam: Present: soft, normal bowel sounds - Rectal Rectal exam: Present: deferred - Extremities Exam Extremities exam: Present: normal inspection - Back Exam Back exam: Present: normal inspection - Neurological Exam Neurological exam: Present: alert, oriented X3, CN II-XII intact. Absent: motor sensory deficit - Psychiatric Psychiatric exam: Present: depressed, anxious. Absent: agitated (improved since arrival) - Skin Skin exam: Present: warm, dry, intact, normal color. Absent: rash ED Course Vital Signs 09/15/17 16:07 Temperature 98.6 F Pulse Rate 103 H Respiratory 20 Rate Blood Pressure 150/93 O2 Sat by Pulse 100 Oximetry ED Medical Decision Making - Lab Data Result diagrams: 09/15/17 17:08 09/15/17 17:08 - Medical Decision Making Patient has typical history of acute anxiety reaction with secondary hyperventilation, with stable examination physically as well as stable serum electrolytes and blood count, and patient is stable from the standpoint neurologically with respect to her multiple sclerosis. She is clearly stable for discharge, but has inadequate current specialty care, likely due to financial or insurance insufficiencies. She was given Xanax here with good improvement, but I believe she will do well with a short course of rescue doses of lorazepam, we'll give her an isolated prescription here, with instructions to follow with her primary care physician if she needs ongoing prescriptions, and specifically advised her she was not likely to get refills here after this initial prescription. - Differential Diagnosis acute anxiety reaction, multiple sclerosis consultation Critical Care Time: No Critical care attestation.: If time is entered above; I have spent that time in minutes in the direct care of this critically ill patient, excluding procedure time. ED Disposition Clinical Impression: Anxiety Disposition: DC-09 OP ADMIT IP TO THIS HOSP Is pt being admited?: No Does the pt Need Aspirin: No Condition: Stable Instructions: Anxiety (ED) Additional Instructions: We are given a prescription for lorazepam, which is an anxiety medicine to take in case you have panic symptoms. Take one tablet at the first sign of any panic reaction. He may repeat this tablet and one hour if not significantly improved. Do not take this medicine at other times. If you need recurrent medication refills for this, he will need to contact your primary care doctor for further refills, as she will not receive any refills from the emergency department. We do not have an on-call neurologist for emergency department care today, and he will need to continue to search for a neurologist on your own for care of your multiple sclerosis. If you cannot find one, you may wish to contact [facility] in [place] for further neurologic specialty care. Prescriptions: LORazepam [Ativan] 0.5 mg PO BID PRN #30 tablet PRN Reason: panic attack Referrals: PRIMARY CARE, [Primary Care Provider] - 3-5 Days Forms: Accompanied Note, Work/School Release Form(ED) Time of Disposition: 18:34
[2017-09-15 17:57] LABS: Alanine Aminotransferase 14 units/L (7-56); Albumin 4.1 g/dL (3.9-5); BUN/Creatinine Ratio 20; Blood Urea Nitrogen 12 mg/dL (7-17); Hemolysis Index 4
[2017-09-15 17:58] LABS: Amphetamine Screen,Urine PRESUMPTIVE NEGATIVE; Benzodiazepines Screen,Urine PRESUMPTIVE NEGATIVE; Cannabinoid Screen,Urine PRESUMPTIVE NEGATIVE; Methadone Screen,Urine PRESUMPTIVE NEGATIVE; Opiate Screen,Urine PRESUMPTIVE NEGATIVE
--- NOTE | 2017-09-15 18:01 | XRay Report ---
FINAL REPORT EXAM: XR CHEST 1V AP HISTORY: Anxiety TECHNIQUE: upright single view chest PRIORS: None. FINDINGS: Cardiac and mediastinal contours are unremarkable. No focal pulmonary infiltrate is identified. No pleural fluid collection seen. Pulmonary vasculature is unremarkable. IMPRESSION: Negative single-view chest
[2017-09-15 18:19] LABS: Cocaine Screen,Urine PRESUMPTIVE POSITIVE
[2017-09-15 19:13] VITALS: BP 126/73
== END 2017-09-15 19:00 | disposition admitted as inpatient to this hospital (09) ==
LOC: ED 16:04
DX: F41.9 Anxiety disorder, unspecified (principal); R06.02 Shortness of breath; R20.2 Paresthesia of skin; F17.200 Nicotine dependence, unspecified, uncomplicated; F12.10 Cannabis abuse, uncomplicated; Z79.899 Other long term (current) drug therapy
CPT/HCPCS: 36415; 71045; 80053; 80307; 84484; 85025; 99284; G0480; 80320

== ENCOUNTER 2018-09-08 14:16 | Emergency (ER) | payer MEDICAID ==
[2018-09-08 14:48] VITALS: BP 118/75
--- NOTE | 2018-09-08 14:48 | Emergency Department Report ---
Chief Complaint: Anxiety Stated Complaint: ANXIETY Time Seen by Provider: 09/08/18 14:45 - HPI History of Present Illness: pt states she is having panic attacks since yesterday feels nausea, SOB, and dizziness states she is not currently on anything for anxiety no SI/HI no hallucinations hx of MS states she cant follow up with her neurologist until September screening note: Focused history performed.
[2018-09-08 15:08] LABS: Basophils % (Auto) 0.7 % (0.0-1.8); Eosinophils # (Auto) 0.1 K/mm3 (0.0-0.4); Eosinophils % (Auto) 0.9 % (0.0-4.3); Hematocrit 36.2 % (30.3-42.9); Hemoglobin 11.4 gm/dl (10.1-14.3); Lymphocytes % (Auto) 15.6 % (13.4-35.0); Mean Corpuscular HGB Conc 32 % (30-34); Mean Corpuscular Volume 75 fl (79-97); Monocytes # (Auto) 0.5 K/mm3 (0.0-0.8); Monocytes % (Auto) 8.8 % (0.0-7.3); Platelet Count 217 K/mm3 (140-440); Red Blood Count 4.82 M/mm3 (3.65-5.03)
[2018-09-08 15:24] LABS: Red Cell Distribution Width 20.3 % (13.2-15.2)
[2018-09-08 15:30] LABS: Alanine Aminotransferase 19 units/L (7-56); Albumin 4.1 g/dL (3.9-5); BUN/Creatinine Ratio 11; Blood Urea Nitrogen 9 mg/dL (7-17); Calcium 8.6 mg/dL (8.4-10.2); Hemolysis Index 5
[2018-09-08 17:20] LABS: HCG Qualitative,Urine Negative (Negative)
[2018-09-08 17:24] LABS: Bacteria,Urine 1+ /HPF (Negative); Bilirubin,Urine NEG (Negative); Blood,Urine SM (Negative); Calcium Oxalate Crystals,Urine 3+; Color,Urine Yellow (Yellow); Mucus,Urine FEW /HPF
[2018-09-08 17:30] LABS: Amphetamine Screen,Urine PRESUMPTIVE NEGATIVE; Benzodiazepines Screen,Urine PRESUMPTIVE NEGATIVE; Cannabinoid Screen,Urine PRESUMPTIVE NEGATIVE; Methadone Screen,Urine PRESUMPTIVE NEGATIVE; Opiate Screen,Urine PRESUMPTIVE NEGATIVE
[2018-09-08 17:58] LABS: Cocaine Screen,Urine PRESUMPTIVE POSITIVE
[2018-09-08] MEDS ORDERED: ATIVAN IM ONE (18:27)
--- NOTE | 2018-09-08 18:31 | Emergency Department Report ---
ED Anxiety HPI - General Chief Complaint: Anxiety Stated Complaint: ANXIETY Time Seen by Provider: 09/08/18 14:45 Source: patient, EMS Mode of arrival: Ambulatory - History of Present Illness Initial Comments: 42-year-old -Iranian female reports to the emergency room stating "dictations I keep having anxiety attacks" onset yesterday. Patient states his sister to her MS. ANTUNEZ Complaint: anxiety -: days(s) (1) Previous History of Same: Yes Severity: moderate Quality: intermittant Provoking factors: emotional stress - Related Data Home Medications: Previous Rx's Medication Instructions Recorded Last Taken Type Famotidine [Pepcid] 20 mg PO BID #20 tablet 10/01/16 Unknown Rx oxyCODONE /ACETAMINOPHEN [Percocet 1 tab PO Q12H PRN #10 tablet 10/01/16 Unknown Rx 5/325 mg] Benzonatate [Tessalon Perles] 100 mg PO Q8HR #24 capsule 06/09/17 Unknown Rx Ibuprofen [Motrin 800 MG tab] 800 mg PO Q8H #40 tablet 06/09/17 Unknown Rx LORazepam [Ativan] 0.5 mg PO BID PRN #30 tablet 09/15/17 Unknown Rx Acetaminophen [Tylenol Arthritis] 650 mg PO Q6HR PRN #30 tablet.er 04/20/18 Unknown Rx Ibuprofen [Motrin] 600 mg PO Q8H PRN #30 tablet 04/20/18 Unknown Rx hydrOXYzine HCL [Atarax] 25 mg PO Q6HR PRN #20 tablet 09/08/18 Unknown Rx Allergies/Adverse Reactions: Allergies Allergy/AdvReac Type Severity Reaction Status Date / Time No Known Allergies Allergy Verified 04/20/18 19:20 ED Review of Systems ROS: Stated complaint: ANXIETY Other details as noted in HPI Comment: All other systems reviewed and negative Psychiatric: anxiety, depression. denies: auditory hallucinations, visual hallucinations, homicidal thoughts, suicidal thoughts ED Past Medical Hx - Past Medical History Hx Hypertension: No Hx CVA: No Hx Heart Attack/AMI: No Hx Congestive Heart Failure: No Hx Diabetes: No Hx Deep Vein Thrombosis: No Hx Pulmonary Embolism: No Hx GERD: No Hx Liver Disease: No Hx Renal Disease: No Hx Sickle Cell Disease: No Hx Arthritis: No Hx Headaches / Migraines: No Hx Seizures: No Hx Kidney Stones: No Hx Psychiatric Treatment: Yes (anxiety) Hx Asthma: (childhood) Hx COPD: No Hx Tuberculosis: No Hx Dementia: No Hx HIV: No Additional medical history: MS, Trigeminal Neuralgia - Surgical History Hx Coronary Stent: No Hx Open Heart Surgery: No Hx Pacemaker: No Hx Internal Defibrillator: No Hx Cholecystectomy: No Hx Appendectomy: No Hx Breast Surgery: No Additional Surgical History: oscopy - Social History Smoking Status: Current Every Day Smoker Substance Use Type: Alcohol - Medications Home Medications: Home Medications Medication Instructions Recorded Confirmed Last Taken Type Famotidine [Pepcid] 20 mg PO BID #20 tablet 10/01/16 Unknown Rx oxyCODONE /ACETAMINOPHEN [Percocet 1 tab PO Q12H PRN #10 tablet 10/01/16 Unknown Rx 5/325 mg] Benzonatate [Tessalon Perles] 100 mg PO Q8HR #24 capsule 06/09/17 Unknown Rx Ibuprofen [Motrin 800 MG tab] 800 mg PO Q8H #40 tablet 06/09/17 Unknown Rx LORazepam [Ativan] 0.5 mg PO BID PRN #30 tablet 09/15/17 Unknown Rx Acetaminophen [Tylenol Arthritis] 650 mg PO Q6HR PRN #30 tablet.er 04/20/18 Unknown Rx Ibuprofen [Motrin] 600 mg PO Q8H PRN #30 tablet 04/20/18 Unknown Rx hydrOXYzine HCL [Atarax] 25 mg PO Q6HR PRN #20 tablet 09/08/18 Unknown Rx ED Physical Exam - General Limitations: No Limitations General appearance: alert, in no apparent distress, anxious, other (tearful) - Head Head exam: Present: atraumatic, normocephalic - Eye Eye exam: Present: normal appearance - ENT ENT exam: Present: mucous membranes moist - Neck Neck exam: Present: normal inspection, full ROM - Extremities Exam Extremities exam: Present: normal inspection, full ROM - Back Exam Back exam: Present: normal inspection, full ROM - Neurological Exam Neurological exam: Present: alert, oriented X3 - Psychiatric Psychiatric exam: Present: anxious - Skin Skin exam: Present: warm, dry, intact, normal color. Absent: rash ED Course Vital Signs 09/08/18 14:45 Temperature 99.6 F Pulse Rate 89 Respiratory 18 Rate Blood Pressure 118/75 O2 Sat by Pulse 100 Oximetry ED Medical Decision Making - Lab Data Result diagrams: 09/08/18 14:57 09/08/18 14:57 - Medical Decision Making Patient has been evaluated by this provider fast track. Patient is tearful and crying. States that she is suffering from anxiety. Review of labs patient shows that she has cocaine in the urine. Patient was given 1 mg IM of Ativan. Patient was discharged home on Atarax and to follow-up with mental health provider I have listed their information below for her convenience. Critical care attestation.: If time is entered above; I have spent that time in minutes in the direct care of this critically ill patient, excluding procedure time. ED Disposition Clinical Impression: Anxiety, Ketonuria, Cocaine abuse Disposition: TO HOME OR SELFCARE Is pt being admited?: No Does the pt Need Aspirin: No Condition: Stable Instructions: Anxiety (ED), Cocaine Abuse (ED) Additional Instructions: Please refrain from using cocaine. Please take her anti -anxiety medications. Follow up with her mental health provider. Prescriptions: hydrOXYzine HCL [Atarax] 25 mg PO Q6HR PRN #20 tablet PRN Reason: Anxiety Referrals: SVETLANA HO MD [Primary Care Provider] - 3-5 Days [facility] [Outside] - 3-5 Days [facility] [Outside] - 3-5 Days
[2018-09-08] MEDS ORDERED: NACL 0.9% 1000 ML 1,000 ML IV ONE (18:35)
--- NOTE | 2018-09-08 18:44 | XRay Report ---
PROCEDURE: XR CHEST ROUTINE 2V TECHNIQUE: PA and lateral chest radiographs were obtained. HISTORY: SOB COMPARISONS: None. FINDINGS: Heart: Normal. Mediastinum/Vessels: Normal. Lungs/Pleural space: No infiltrate, effusion, or pneumothorax. Bony thorax: No acute osseous abnormality. IMPRESSION: No pulmonary infiltrates are identified. This document is electronically signed by Blanquita Briscoe MD., September 08 2018 06:42:40 PM ET
== END 2018-09-08 19:58 | disposition home or self-care (01) ==
LOC: ED 14:16
DX: F41.9 Anxiety disorder, unspecified (principal); R82.4 Acetonuria; F14.10 Cocaine abuse, uncomplicated; F17.200 Nicotine dependence, unspecified, uncomplicated
CPT/HCPCS: 36415; 71046; 80053; 80307; 81001; 81025; 83735; 84100; 85025; 96372; 99284; J2060; J7030